=== PATIENT | female | born 1965 | race Caucasian/White ===

== ENCOUNTER 2021-10-16 08:44 | Outpatient (CLI) | payer OTHER, SELFPAY ==
--- NOTE | ~2021-10-16 | CT_ITS ---
EXAMINATION: CT lung screening DATE: 10/16/2021 09:17 INDICATION: Personal history of tobacco dependence TECHNIQUE: Computed tomography (CT) of the chest was performed without intravenous contrast. The dose -length product was 132.76 mGy-cm. Automated exposure control and iterative reconstruction technique were employed. COMPARISON: Chest x-ray dated 07/07/2007 FINDINGS: No thoracic lymphadenopathy. Small pericardial effusion. The upper abdomen is unremarkable. Small hiatal hernia. There is right upper lobe consolidation peripherally within a 7-8 millimeter pa rt solid nodular component abutting the pleural surface, image 32. No endobronchial lesions. There is lingular atelectasis/scarring. There are a few 1-2 mm scattered pulmonary nodules, likely benign. No pneumothorax. There is a mild wedge compression deformity of a lower thoracic vertebra, likely chron ic. Mild thoracic spondylosis. IMPRESSION: 1. Lung Rads category 4A, suspicious. Recommend follow-up low dose CT chest in 3 months or PET/CT sca n. Reviewed, dictated and finalized at location B. IMPRESSION: 1. Lung Rads category 4A, suspicious. Recommend follow-up low dose CT chest in 3 months or PET/CT scan.
== END 2021-10-16 08:45 | disposition home or self-care (01) ==
PROVIDERS: PCP Emergency Medicine; Visit Provider Nurse Practitioner Family
DX: Z72.0 Tobacco use (principal); R91.8 Other nonspecific abnormal finding of lung field
CPT/HCPCS: 71271

== ENCOUNTER 2021-11-03 01:25 | Day surgery (SDC) | payer OTHER, SELFPAY ==
[2021-10-31 11:21] VITALS: BMI 31.9
[2021-11-03 08:28] VITALS: BP 134/82; PULSE 78; RESP 20; TEMP 36.2; O2SAT 97; BMI 34.3
--- NOTE | 2021-11-03 08:35 | WPDANESEPPF ---
Anes - Initial Pre Proc Eval Procedure: Operation Date: 11/03/21 09:30 Proposed Procedures p Esophagogastroduodenoscopy - Rolando Arauz MD s [facility] Hemorrhoid Treatment - Rolando Arauz MD Date/Time: 11/03/21 08:35 Surgeon: Rolando Arauz MD Pre Op Diagnosis: dysphagia; hemorrhoids Patient Data Age: 56 Gender: F Height: 1.5 m Weight: 77.2 kg Last Vital Signs Temp 36.2 C L 11/03/21 08:28 Pulse 78 11/03/21 08:28 Resp 20 11/03/21 08:28 BP 134/82 11/03/21 08:28 Pulse Ox 97 11/03/21 08:28 O2 Del Method Room Air 11/03/21 08:28 Allergies Allergy/AdvReac Type Severity Reaction Status Date / Time diphenhydramine Allergy Severe Swelling Verified 11/03/21 08:25 of Lip/Tongue/Throat acetaminophen Allergy Mild Hives Verified 11/03/21 08:25 [From Darvocet-N] hydromorphone [From Dilaudid] Allergy Mild Hallucinati Verified 11/03/21 08:25 ng propoxyphene Allergy Mild Hives Verified 11/03/21 08:25 [From Darvocet-N] Home Medications Medication Instructions Recorded Confirmed Type pregabalin 200 mg capsule See Rx Instructions .Route .COMPLEX 08/08/21 11/03/21 History omeprazole 40 mg capsule,delayed See Rx Instructions .Route 08/14/21 11/03/21 Rx release .COMPLEX #90 caps epinephrine 0.3 mg/0.3 mL 0.3 mg (0.3 mL) IM .COMPLEX #2 ea 09/13/21 11/03/21 Rx injection, auto-injector (EpiPen) hyoscyamine sulfate 0.125 mg tablet 0.125 mg PO QID 10/06/21 11/03/21 History albuterol sulfate 90 mcg/actuation See Rx Instructions .Route 10/31/21 11/03/21 Rx aerosol inhaler .COMPLEX #25.5 grams ibuprofen 800 mg tablet 800 mg PO TID 10/31/21 11/03/21 History methocarbamol 500 mg tablet 500 tablet PO TID 10/31/21 11/03/21 History atorvastatin 40 mg tablet See Rx Instructions .Route 11/01/21 11/03/21 Rx .COMPLEX #90 tabs fesoterodine 4 mg tablet,extended 4 mg PO DAILY 11/07/21 History release 24 hr (Toviaz) fluticasone 100 mcg-salmeterol 50 1 inh inhalation Q12H #180 ea 11/07/21 Rx mcg/dose blistr powdr for inhalation (Advair Diskus) Patient hx anesthesia problems: none Family hx anesthesia problems: none Results Review: All pre-operative results and documents have been reviewed as part of the pre-operative evaluation. [facility] Past Medical History Medical History delivery delivered (~1991) delivery delivered (~1994) delivery delivered (~1999) Chronic pain Difficulty swallowing Fibromyalgia GERD (gastroesophageal reflux disease) Hemorrhoids HLD (hyperlipidemia) Musculoskeletal pain Pneumonia Family History Family History Father , 68 Heart attack Mother , 64 Diabetes mellitus Social History Social History Smoking packs per day: 0.5 Smoking cigarettes per day: 10.0 Years smoked: 39 Smoking pack-years: 19.50 Smoking status: Current every day smoker Tobacco type: cigarettes Second hand tobacco smoke exposure: Yes Additional smoking assessment comments: Now down to 0.5ppd Alcohol intake: current Alcohol use details: occasionally Substance use: never Substance use type: does not use Gender identity (if verbalized by the patient): Female Spiritual care concerns: No Anes - Eval Final PreProcedure Day of Procedure 11/03/21 08:35 Patient weight: obese Heart: regular rate and rhythm Lungs: clear to auscultation Airway: Mallampati scale class II Neurological: alert and oriented Last oral intake: >/= 8 hours ASA classification: III Emergent: no Anesthetic plan: proceed Anesthesia type and monitoring: general GIVS and standard monitoring Results Review: All pre-operative results and documents have been reviewed as part of the pre-operative evaluation. Informed Consen
[2021-11-03] MEDS: LACTATED RINGERS 1,000 ML 150 ML IV CONT (08:38)
--- NOTE | 2021-11-03 08:56 | PM.HPGS ---
History of Present Illness History of Present Illness Consent: Risks, benefits, and alternatives have been discussed and questions answered. Patient agrees to proceed with procedure. Chief complaint: dysphagia; hemorrhoids Narrative: Belle Sifuentes is a 56 year old female here for EGD and IRC treatment, she has history of esophageal stricture dilated about 3-4 years ago doing well until recently, noted more difficulty after eating certain meals and she thinks that will need another EGD, she is using omeprazole for years. Also hemorrhoids Review of Systems Constitutional: Constitutional: Denies headache(s) and Denies weakness Eyes: Eyes: Denies blurry vision ENT: Reports Normal hearing present, Denies headache(s) and Denies neck pain Cardiovascular: Cardiovascular: Denies chest pain and Denies dyspnea Respiratory: Respiratory: Denies dyspnea Gastrointestinal: Gastrointestinal: Reports no additional gastrointestinal complaints Genitourinary: Genitourinary: Denies dysuria Musculoskeletal: Musculoskeletal: Denies neck pain Integumentary/Breasts: Skin/Breast: Denies dry skin Neurologic: Reports Normal hearing present, Denies headache(s) and Denies weakness Psychiatric: Psychiatric: Denies anxiety Endocrine: Endocrine: Denies change in body appearance Hematologic/Lymphatic: Hematologic/Lymphatic: Denies easy bleeding Allergic/Immunologic: Allergic/Immunologic: Denies urticaria PMFSH Past Medical History Medical History (Updated 11/03/21 @ 08:56 by Rolando Arauz MD) delivery delivered (~1991) delivery delivered (~1994) delivery delivered (~1999) Chronic pain Difficulty swallowing Fibromyalgia GERD (gastroesophageal reflux disease) Hemorrhoids HLD (hyperlipidemia) Musculoskeletal pain Pneumonia Family History Family History Father , 68 Heart attack Mother , 64 Diabetes mellitus Social History Social History (Updated 10/06/21 @ 10:59 by Erik Lundberg, GÓMEZ) Smoking packs per day: 0.5 Smoking cigarettes per day: 10.0 Years smoked: 39 Smoking pack-years: 19.50 Smoking status: Current every day smoker Tobacco type: cigarettes Second hand tobacco smoke exposure: Yes Additional smoking assessment comments: Now down to 0.5ppd Alcohol intake: current Alcohol use details: occasionally Substance use: never Substance use type: does not use Living arrangements: with family Gender identity (if verbalized by the patient): Female Spiritual care concerns: No Meds Home Medications and Allergies Home Medications Medication Instructions Recorded Confirmed Type pregabalin 200 mg capsule See Rx Instructions .Route .COMPLEX 08/08/21 11/03/21 History omeprazole 40 mg capsule,delayed See Rx Instructions .Route 08/14/21 11/03/21 Rx release .COMPLEX #90 caps epinephrine 0.3 mg/0.3 mL 0.3 mg (0.3 mL) IM .COMPLEX #2 ea 09/13/21 11/03/21 Rx injection, auto-injector (EpiPen) hyoscyamine sulfate 0.125 mg tablet 0.125 mg PO QID 10/06/21 11/03/21 History albuterol sulfate 90 mcg/actuation See Rx Instructions .Route 10/31/21 11/03/21 Rx aerosol inhaler .COMPLEX #25.5 grams ibuprofen 800 mg tablet 800 mg PO TID 10/31/21 11/03/21 History methocarbamol 500 mg tablet 500 tablet PO TID 10/31/21 11/03/21 History atorvastatin 40 mg tablet See Rx Instructions .Route 11/01/21 11/03/21 Rx .COMPLEX #90 tabs Allergies Allergy/AdvReac Type Severity Reaction Status Date / Time diphenhydramine Allergy Severe Swelling Verified 11/03/21 08:25 of Lip/Tongue/Throat acetaminophen Allergy Mild Hives Verified 11/03/21 08:25 [From Darvocet-N] hydromorphone [From Dilaudid] Allergy Mild Hallucinati Verified 11/03/21 08:25 ng propoxyphene Allergy Mild Hives Verified 11/03/21 08:25 [From Darvocet-N] Vital Signs Vital Signs - 24 hr 11/03/21 0
--- NOTE | 2021-11-03 09:21 | W.PM.PROC2 ---
Procedure Note - Detailed Date of Procedure 11/03/21 Pre-op Diagnosis dysphagia; hemorrhoids Post-op Diagnosis Same Procedure Performed IRC of hemorrhoids Surgeon Rolnado Arauz MD Description of Procedure anoscopy was introduce and noted grade II internal hemorrhoids at 3-6 o'clock, then advanced IRC probe and hemorrhoids treated 1.5 seconds x6
[2021-11-03 09:22] VITALS: BP 117/70; PULSE 93; RESP 20; O2SAT 96
[2021-11-03 09:32] VITALS: BP 109/71; PULSE 85; RESP 20; O2SAT 100
[2021-11-03 09:42] VITALS: BP 129/73; PULSE 81; RESP 17; O2SAT 100
== END 2021-11-03 09:52 | disposition home or self-care (01) ==
PROVIDERS: PCP Emergency Medicine; Visit Provider Internal Medicine Gastroenterology
PROC: 0DJ08ZZ Inspection of Upper Intestinal Tract, Via Natural or Artificial Opening Endoscopic (ICD-10-PCS; CPT 43235; principal; 2021-11-03 09:30)
PROC: (CPT 46930; 2021-11-03 09:30)
DX: R13.19 Other dysphagia (principal); K29.50 Unspecified chronic gastritis without bleeding; K21.00 Gastro-esophageal reflux disease with esophagitis, without bleeding; K64.1 Second degree hemorrhoids; K22.4 Dyskinesia of esophagus; K44.9 Diaphragmatic hernia without obstruction or gangrene; K57.10 Diverticulosis of small intestine without perforation or abscess without bleeding; R14.0 Abdominal distension (gaseous); Z79.51 Long term (current) use of inhaled steroids; E78.5 Hyperlipidemia, unspecified; M79.7 Fibromyalgia; F17.210 Nicotine dependence, cigarettes, uncomplicated; E66.9 Obesity, unspecified; Z68.34 Body mass index [BMI] 34.0-34.9, adult
CPT/HCPCS: 43248; 43239; 46930; 88305; 88312; J2704; J7120

== ENCOUNTER 2021-11-20 07:31 | Outpatient (CLI) | payer OTHER, SELFPAY ==
[2021-11-20 08:15] LABS: Alanine Aminotransferase 23 U/L (6-35); Albumin Level 4.3 g/dL (3.5-5.1); Alkaline Phosphatase 72 U/L (38-126); Anion Gap 3 mmol/L (8-16); Aspartate Amino Transferase 25 U/L (14-36); Bilirubin,Total 0.3 mg/dL (0.2-1.3); Blood Urea Nitrogen 18 mg/dL (7-17); Carbon Dioxide 29 mmol/L (22-30); Chloride 107 mmol/L (98-107); Cholesterol 250 mg/dL (0-200); Estimated Glomerular Filt Rate > 60; Glucose 101 mg/dL (65-110); HDL Direct 42 mg/dL; Potassium 4.3 mmol/L (3.4-5.0); Sodium 139 mmol/L (137-145); Triglycerides 296 mg/dL (<150)
[2021-11-20 08:26] LABS: LDL Cholesterol Direct 112 mg/dL
[2021-11-20 08:36] LABS: Hemoglobin A1C 5.2 % (<5.7)
== END 2021-11-20 07:32 | disposition home or self-care (01) ==
LOC: ANHLAB 07:33
PROVIDERS: PCP Emergency Medicine; Visit Provider Emergency Medicine
DX: R73.9 Hyperglycemia, unspecified (principal); E78.5 Hyperlipidemia, unspecified
CPT/HCPCS: 36415; 80053; 80061; 83036

== ENCOUNTER 2021-12-05 08:01 | Outpatient (CLI) | payer OTHER, SELFPAY ==
--- NOTE | 2021-12-10 16:42 | WPDHOMESLEEP ---
Sleep Study - Home Unattended Date of Study: 12/05/21 Ordering Provider: Erik Lundberg APRN Interpreting Provider: Charla Quintero MD Home Sleep Study Type: Apnea Link Air Height: 1.5 m Weight: 77.111 kg Body Mass Index: 34.3 Neck Circumference (inches): 15.5 [place]: 15 Reason for Sleep Study Hypersomnolence Sleep History Belle Sifuentes is a 56-year-old female with 2 years of insomnia. She has difficulty falling asleep and staying asleep. There is a family history fo sleep conditions, says that her sister uses CPAP. She goes to bed around 9:30 p.m., falls asleep around 10:00 p.m. and wakes up every 2 hours throughout the night. She wakes for the day at 4:30 a.m.. She estimates getting 5 hours of sleep or less. She is not refreshed on waking. Recently, she has started taking a nap lasting 1-2 hours in the afternoon 2 to 3 times a week. She has used sleeping aids for the last 5 years without improvement. She does not wake at night feeling short of breath. She frequently wakes at night with belching, heartburn and coughing. She constantly snores loudly, and frequently snores loudly enough that others complain about it. She constantly has trouble sleeping with a cold. She never wakes up at night gasping for breath. She rarely sweats excessively at night. She occasionally notices her heart pounding or beating irregularly at night. She frequently falls asleep in the day, frequently falls asleep involuntarily, does not fall asleep while driving. She she rarely has loss of muscle tone with strong emotion. She occasionally has daytime difficulties due to excessive sleepiness. She frequently feels paralyzed on waking or falling asleep. She occasionally has vivid dreamlike scenes upon awakening or falling asleep. She rarely feels afraid to go to sleep. She does not have nightmares. She occasionally remembers her dreams. She rarely has racing thoughts. She frequently feels sad or depressed. She frequently has anxiety. She occasionally has muscular tension and occasionally notices parts of her body jerking. She does not kick at night. She frequently has crawling and aching feelings in her legs. She rarely has any kind of leg pain at night. She occasionally has morning jaw pain. She does not grind her teeth during sleep. She constantly is bothered by pain during the day. She frequently is awakened by pain at night. She occasionally wakes up feeling stiff in the morning, occasionally wakes up with sore or achy muscles. She frequently wakes up with pain in the neck and spine. She has memory problems and fatigue. She takes antacids regularly. On occasion, she has morning headaches. Normal bedtime is between 8:00-9:00 p.m. falling asleep within 30 minutes to an hour waking twice a night to go the bathroom. Morning wake time is between 5 and 6:00 a.m.. She estimates getting between 4-6 hours of sleep at night. On weekends, bedtime is between 9:00-10:00 p.m., wake time is the same, between 5:00-6:00 a.m. she takes naps in the afternoon. A short nap is not refreshing. She is drowsy for an hour on waking. She feels better in the evening compared to other times of day. Habits: Tobacco 1 pack per day. She drinks coffee. She has alcohol once a week. No recreational drugs. [facility] Past Medical History Medical History delivery delivered (~1991) delivery delivered (~1994) delivery delivered (~1999) Chronic pain Difficulty swallowing Fibromyalgia GERD (gastroesophageal reflux disease) Hemorrhoids HLD (hyperlipidemia) Musculoskeletal pain Pneumonia Family History Family History Father , 68 Heart attack Mother , 64 Diabetes mellitus Social History Social History Smoking packs per day: 0.5 Smoking cigarettes per day: 1
[2021-12-10 18:53] VITALS: BMI 34.3
== END 2021-12-06 12:11 | disposition home or self-care (01) ==
LOC: ANHCSM 08:02
PROVIDERS: PCP Emergency Medicine; Visit Provider Nurse Practitioner Family
DX: G47.33 Obstructive sleep apnea (adult) (pediatric) (principal)
CPT/HCPCS: 95806

== ENCOUNTER 2021-12-20 10:10 | Outpatient (CLI) | payer OTHER, SELFPAY ==
--- NOTE | ~2021-12-20 | XR_ITS ---
XR hip BI 2V w AP pelvis DATE: 12/20/2021 10:30 INDICATION: Bilateral hip pain, increased on the left. Fibromyalgia. No injury. TECHNIQUE: AP pelvis. AP and lateral views of each hip. COMPARISON: None FINDINGS: The pubic symphysis and sacroiliac joints are intact. No pelvic fracture or bone destructio n. No fracture or dislocation, avascular necrosis or bone destruction of either hip. Mild bilateral hip osteoarthritis. IMPRESSION: Mild bilateral hip osteoarthritis Reviewed, dictated and finalized at location B.
== END 2021-12-20 10:11 | disposition home or self-care (01) ==
PROVIDERS: PCP Emergency Medicine
DX: M16.0 Bilateral primary osteoarthritis of hip (principal); M79.7 Fibromyalgia
CPT/HCPCS: 73521

== ENCOUNTER 2022-04-02 10:52 | Outpatient (CLI) | payer OTHER, SELFPAY ==
--- NOTE | ~2022-04-02 | XR_ITS ---
EXAM: XR lumbar spine min 4V DATE: 04/02/2022 11:20 HISTORY: G89.29 - left side low back pain x 4 mo, no known inj . COMPARISON: None available. FINDINGS: 5 nonrib-bearing lumbar-type vertebral bodies. Pedicles intact. Normal vertebral body alig nment. Vertebral body heights preserved. Multilevel mild disc space narrowing, most notably at L3-4, with moderate multilevel marginal osteophytosis. Multilevel facet sclerosis and hypertrophy. Arterial calcification without evident aneurysm. No fracture or dislocation. IMPRESSION: Multilevel moderate degenerative disc disease. Multilevel mild facet arthropathy. Reviewed, dictated and finalized at location K. [employer]BILE [employer] IMPRESSION: Multilevel moderate degenerative disc disease. Multilevel mild face t arthropathy.
[2022-04-02 11:59] LABS: Alanine Aminotransferase 26 U/L (6-35); Albumin Level 4.4 g/dL (3.5-5.1); Alkaline Phosphatase 75 U/L (38-126); Anion Gap 6 mmol/L (8-16); Aspartate Amino Transferase 27 U/L (14-36); Bilirubin,Total 0.4 mg/dL (0.2-1.3); Blood Urea Nitrogen 13 mg/dL (7-17); Calcium 9.4 mg/dL (8.4-10.2); Carbon Dioxide 29 mmol/L (22-30); Chloride 106 mmol/L (98-107); Cholesterol 211 mg/dL (0-200); Estimated Glomerular Filt Rate > 60; Glucose 96 mg/dL (65-110); HDL Direct 38 mg/dL; Potassium 4.1 mmol/L (3.4-5.0); Sodium 141 mmol/L (137-145); Triglycerides 263 mg/dL (<150)
[2022-04-02 12:11] LABS: LDL Cholesterol Direct 107 mg/dL
== END 2022-04-02 10:53 | disposition home or self-care (01) ==
PROVIDERS: PCP Emergency Medicine; Visit Provider Emergency Medicine
DX: E78.5 Hyperlipidemia, unspecified (principal); G89.29 Other chronic pain; M51.36 Other intervertebral disc degeneration, lumbar region
CPT/HCPCS: 36415; 72110; 80053; 80061